=== PATIENT | female | born 1980 | race Caucasian/White ===

== ENCOUNTER 2020-04-06 22:17 | Emergency (ER) | payer SELFPAY ==
--- OUTSIDE RECORDS SUMMARY | 2020-04-06 22:19 | XMS REPORT | Continuity of Care Document ---
:1980 Author Organization [facility] t Address [facility] [place] [address] [place] [id number] Care Team Providers Name Role Phone Unavailable Unavailable Unavailable Problems This patient has no known problems. Allergies, Adverse Reactions, Alerts This patient has no known allergies or adverse reactions. Medications This patient has no known medications. Procedures This patient has no known procedures. Results This patient has no known results.
[2020-04-06] MEDS ORDERED: NA CHLORIDE 0.9% 1,000 ML ONE (23:24)
[2020-04-06] MEDS ORDERED: ONDANSETRON 4 MG/2 ML VIAL ONE (23:24)
[2020-04-06] MEDS ORDERED: MORPHINE 2 MG/ML SYR ONE (23:24)
[2020-04-06 23:31] LABS: Absolute Lymphocytes (CBC) 2.6 K/uL (0.7-4.9); Hematocrit 27.4 % (36.0-45.0); Lymphocytes % 27.6 % (15.3-44.8); MPV 8.9 fL (7.6-11.3); RBC Red Blood Cell Count 4.08 M/uL (3.86-4.86)
[2020-04-06 23:41] LABS: Urine Blood NEGATIVE (NEG); Urine Glucose NEGATIVE (NEG); Urine Protein NEGATIVE (NEG); Urine Specific Gravity <1.005 (1.005-1.030); Urine pH 5.5 (5.0-7.0)
[2020-04-06 23:50] LABS: ALT/SGPT 14 U/L (12-78); AST/SGOT 14 U/L (15-37); Albumin 4.3 g/dL (3.4-5.0); Alkaline Phosphatase 121 U/L (45-117); BUN Blood Urea Nitrogen 14 mg/dL (7-18); Bicarbonate 26 mmol/L (21-32); Bilirubin Direct < 0.1 mg/dL (0-0.2); Bilirubin Total 0.2 mg/dL (0.2-1.0); Glucose Level 92 mg/dL (74-106); Lipase 110 U/L (73-393); Potassium 3.5 mmol/L (3.5-5.1); Protein, Total 8.1 g/dL (6.4-8.2); Sodium Level 141 mmol/L (136-145)
[2020-04-06 23:59] LABS: Blood Morphology Comment NOTED (NOT SEEN); Hypochromasia 2+; Platelet Estimate ADEQ; White Blood Cell Scan OK (OK)
[2020-04-07] MEDS ORDERED: MORPHINE 2 MG/ML SYR ONE (00:27)
--- NOTE | 2020-04-07 00:34 | ER ---
Nurse's Notes [facility] Name: Berenice Bowen Age: 39 yrs Sex: Female : 1980 Arrival Date: 04/06/2020 Time: 22:20 Bed 16 Private MD: Diagnosis: Abdominal tenderness;Other ovarian cysts-bilateral;Constipation;Scoliosis;Anemia, unspecified Presentation: 04/06 22:39 Chief complaint: Patient states: I started having pain around 6pm, it has progressively jb4 gotten worse. The pain starts in the middle of my abdomen and radiates to my right lower back. Coronavirus screen: Client denies travel out of the [place] in the last 14 days. Ebola Screen: No symptoms or risks identified at this time. Initial Sepsis Screen: Does the patient meet any 2 criteria? No. Patient's initial sepsis screen is negative. Does the patient have a suspected source of infection? No. Patient's initial sepsis screen is negative. Risk Assessment: Do you want to hurt yourself or someone else? Patient reports no desire to harm self or others. Onset of symptoms was April 06, 2020. 22:39 Method Of Arrival: Wheelchair jb4 22:39 Acuity: LILLIAN 3 jb4 Triage Assessment: 22:42 General: Appears in no apparent distress. uncomfortable, Behavior is calm, cooperative, jb4 appropriate for age. Pain: Complains of pain in suprapubic area Pain radiates to right low back Pain currently is 10 out of 10 on a pain scale. Quality of pain is described as throbbing. EENT: No signs and/or symptoms were reported regarding the EENT system. Neuro: Level of Consciousness is awake, alert, obeys commands, Oriented to person, place, time, situation. Cardiovascular: Reports. Respiratory: Airway is patent Respiratory effort is even, unlabored, Respiratory pattern is regular, symmetrical. GI: Abdomen is flat, non-distended. : Reports pain in right flank(s), in lower back. Derm: Skin is intact, Skin is pink, warm \T\ dry. Musculoskeletal: Circulation, motion, and sensation intact. Range of motion: intact in all extremities. Historical: - Allergies: 22:42 Valium; jb4 - Home Meds: 22:42 None [Active]; jb4 - PMHx: 22:42 scoliosis; Kidney stones; jb4 - PSHx: 22:42 Tubal ligation; BILATERAL FOOT SURG; jb4 - Immunization history:: Adult Immunizations not up to date. - Social history:: Smoking status: Patient reports the use of cigarette tobacco products, <1/2 ppd. - Family history:: not pertinent. Screenin:45 Abuse screen: Denies threats or abuse. Nutritional screening: No deficits noted. jb4 Tuberculosis screening: No symptoms or risk factors identified. Fall Risk None identified. Assessment: 22:45 General: see triage assessment.. jb4 23:28 Reassessment: Patient appears in no apparent distress at this time. Patient and/or jb4 family updated on plan of care and expected duration. Pain level reassessed. Patient is alert, oriented x 3, equal unlabored respirations, skin warm/dry/pink. 04/07 00:56 Reassessment: Patient appears in no apparent distress at this time. Patient and/or jb4 family updated on plan of care and expected duration. Pain level reassessed. Patient is alert, oriented x 3, equal unlabored respirations, skin warm/dry/pink. PT reports that the pain is unchanged after medication administration. Provider notified. 01:24 Reassessment: Patient appears in no apparent distress at this time. Patient and/or jb4 family updated on plan of care and expected duration. Pain level reassessed. Patient is alert, oriented x 3, equal unlabored respirations, skin warm/dry/pink. Vital Signs: 04/06 22:39 BP 139 / 71; Pulse 75; Resp 16; Temp 97.9; Pulse Ox 96% on R/A; Weight 65.59 kg (R); jb4 Height 5 ft. 4 in. (162.56 cm) (R); Pain 10/10; 04/07 00:45 BP 125 / 82; Pulse 62; Resp 16; Pulse Ox 100% on R/A; jb4 04/06 22:39 Body Mass Index 24.82 (65.59 kg, 162.56 cm) jb4 ED Course: 04/06 22:20 Patient arrived in ED. bp1 22:27 Yamil Velasco RN is Primary Nurse. rv 22:39 Emory Tinoco MD is Attending Physician. [facility] 22:42 Triage completed. jb4 22:42 Arm band placed on right wrist. jb4 22:45 Patient has correct armband on for positive identification. Bed in low position. Call [facility] light in reach. Side rails up X 1. 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 Pulse ox on. 23:16 Urine collected: clean catch specimen, clear, kumar colored. Patient maintains SpO2 jp3 saturation greater than 95% on room air. 23:20 Initial lab(s) drawn, by ar, sent to lab. Inserted saline lock: 20 gauge in left jb4 antecubital area, using aseptic technique. Blood collected. 04/07 00:10 CT Abd/Pelvis - IV Contrast Only In Process Unspecified. EDTX 00:32 Mari Lopez MD is Referral Physician. [facility] 01:24 No provider procedures requiring assistance completed. IV discontinued, intact, jb4 bleeding controlled, No redness/swelling at site. Pressure dressing applied. Administered Medications: 04/06 23:20 Drug: Zofran (Ondansetron) 4 mg Route: IVP; Site: left antecubital; jb4 23:50 Follow up: Response: No adverse reaction [facility] 23:22 Drug: NS 0.9% 1000 ml Route: IV; Rate: 1 bolus; Site: left antecubital; jb4 23:22 Drug: morphine 2 mg Route: IVP; Site: left antecubital; jb4 04/07 00:33 Drug: morphine 2 mg Route: IVP; Site: left antecubital; jb4 00:56 Follow up: Response: No adverse reaction; Pain is unchanged, physician notified; RASS: [facility] Alert and Calm (0) 01:02 Drug: TORadol 30 mg Route: IVP; Site: left antecubital; jb4 01:24 Follow up: Response: No adverse reaction; Pain is decreased [facility] Point of Care Testing: Urine : 04/06 23:18 hCG Reading: Negative; Control Reading: Positive; jp3 Outcome: 04/07 00:34 Discharge ordered by . [facility] 01:24 Discharged to home ambulatory. [facility] 01:24 Condition: stable 01:24 Discharge instructions given to patient, Instructed on discharge instructions, follow up and referral plans. medication usage, Demonstrated understanding of instructions, follow-up care, medications, Prescriptions given X 4. 01:25 Patient left the ED. 4 Signatures: Dispatcher [employer] EDTX Emory Tinoco MD MD cha Bryson, James, RN RN jb4 Yamil Velasco, RN RN rv Brain Norris jp3 Jaye Pan [facility]
--- NOTE | 2020-04-07 00:34 | EDPHYS ---
Physician Documentation [facility] Name: Berenice Bowen Age: 39 yrs Sex: Female : 1980 Arrival Date: 04/06/2020 Time: 22:20 Bed 16 Private MD: JOSÉ Physician mEory Tinoco HPI: 04/06 22:55 This 39 yrs old Female presents to ER via Wheelchair with complaints of leila Abdominal Pain, Back Pain. 22:55 The patient presents with pain that is acute, with no known mechanism of injury. The leila symptoms are located in the low back, right mid back and right low back. Onset: The symptoms/episode began/occurred today. The pain radiates to the right mid back and right low back. Associated signs and symptoms: The patient has no apparent associated signs or symptoms. The problem was sustained from unknown cause. Modifying factors: The patient symptoms are alleviated by nothing, the patient symptoms are aggravated by bending, standing, walking. Severity of symptoms: At their worst the symptoms were mild, moderate, in the emergency department the symptoms are unchanged. The patient has not experienced similar symptoms in the past. Historical: - Allergies: 22:42 Valium; jb4 - Home Meds: 22:42 None [Active]; jb4 - PMHx: 22:42 scoliosis; Kidney stones; jb4 - PSHx: 22:42 Tubal ligation; BILATERAL FOOT SURG; jb4 - Immunization history:: Adult Immunizations not up to date. - Social history:: Smoking status: Patient reports the use of cigarette tobacco products, <1/2 ppd. - Family history:: not pertinent. ROS: 22:55 Constitutional: Negative for fever, chills, and weight loss, Eyes: Negative for injury, leila pain, redness, and discharge, ENT: Negative for injury, pain, and discharge, Neck: Negative for injury, pain, and swelling, Cardiovascular: Negative for chest pain, palpitations, and edema, Respiratory: Negative for shortness of breath, cough, wheezing, and pleuritic chest pain, Back: Negative for injury and pain, : Negative for injury, bleeding, discharge, and swelling, MS/Extremity: Negative for injury and deformity, Skin: Negative for injury, rash, and discoloration, Neuro: Negative for headache, weakness, numbness, tingling, and seizure, Psych: Negative for depression, anxiety, suicide ideation, homicidal ideation, and hallucinations, Allergy/Immunology: Negative for hives, rash, and allergies, Endocrine: Negative for neck swelling, polydipsia, polyuria, polyphagia, and marked weight changes, Hematologic/Lymphatic: Negative for swollen nodes, abnormal bleeding, and unusual bruising. 22:55 Abdomen/GI: Positive for abdominal pain, of the posterior aspect of right lateral abdomen and right lower quadrant. Exam: 22:55 Constitutional: This is a well developed, well nourished patient who is awake, alert, leila and in no acute distress. Head/Face: Normocephalic, atraumatic. Eyes: Pupils equal round and reactive to light, extra-ocular motions intact. Lids and lashes normal. Conjunctiva and sclera are non-icteric and not injected. Cornea within normal limits. Periorbital areas with no swelling, redness, or edema. ENT: Nares patent. No nasal discharge, no septal abnormalities noted. Tympanic membranes are normal and external auditory canals are clear. Oropharynx with no redness, swelling, or masses, exudates, or evidence of obstruction, uvula midline. Mucous membranes moist. Neck: Trachea midline, no thyromegaly or masses palpated, and no cervical lymphadenopathy. Supple, full range of motion without nuchal rigidity, or vertebral point tenderness. No Meningismus. Chest/axilla: Normal chest wall appearance and motion. Nontender with no deformity. No lesions are appreciated. Cardiovascular: Regular rate and rhythm with a normal S1 and S2. No gallops, murmurs, or rubs. Normal PMI, no JVD. No pulse deficits. Respiratory: Lungs have equal breath sounds bilaterally, clear to auscultation and percussion. No rales, rhonchi or wheezes noted. No increased work of breathing, no retractions or nasal flaring. Skin: Warm, dry with normal turgor. Normal color with no rashes, no lesions, and no evidence of cellulitis. MS/ Extremity: Pulses equal, no cyanosis. Neurovascular intact. Full, normal range of motion. Neuro: Awake and alert, GCS 15, oriented to person, place, time, and situation. Cranial nerves II-XII grossly intact. Motor strength 5/5 in all extremities. Sensory grossly intact. Cerebellar exam normal. Normal gait. Psych: Awake, alert, with orientation to person, place and time. Behavior, mood, and affect are within normal limits. 22:55 Abdomen/GI: Inspection: abdomen appears normal, Bowel sounds: normal, Palpation: mild abdominal tenderness, in the right lower quadrant, Liver: no appreciated palpable abnormalities, Hernia: not appreciated. 22:55 Back: pain, that is mild, ROM is normal, normal spinal alignment noted, CVA tenderness, that is mild, vertebral tenderness, is not appreciated, muscle spasm, is appreciated in the right mid back and right low back. Vital Signs: 22:39 BP 139 / 71; Pulse 75; Resp 16; Temp 97.9; Pulse Ox 96% on R/A; Weight 65.59 kg (R); jb4 Height 5 ft. 4 in. (162.56 cm) (R); Pain 03/04; 04/07 00:45 BP 125 / 82; Pulse 62; Resp 16; Pulse Ox 100% on R/A; jb4 04/06 22:39 Body Mass Index 24.82 (65.59 kg, 162.56 cm) [facility] MDM: 04/06 22:39 Patient medically screened. [facility] 23:01 Differential diagnosis: Hydronephrosis Pyelonephritis Ureterolithiasis. Data reviewed: [facility] vital signs, nurses notes, lab test result(s), radiologic studies, CT scan. 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 Counseling: I had a detailed discussion with the patient and/or guardian regarding: the historical points, exam findings, and any diagnostic results supporting the discharge/admit diagnosis, lab results, radiology results. 04/06 22:55 Order name: Basic Metabolic Panel [facility] 04/06 22:55 Order name: CBC with Diff [facility] 04/06 22:55 Order name: Hepatic Function [facility] 04/06 22:55 Order name: Lipase [facility] 04/06 22:55 Order name: Urine Culture [facility] 04/06 22:55 Order name: Basic Metabolic Panel; Complete Time: 00:19 EDAZ 04/06 22:55 Order name: CT Abd/Pelvis - IV Contrast Only [facility] 04/06 22:55 Order name: CBC with Automated Diff; Complete Time: 00:19 EDAZ 04/06 22:55 Order name: Liver (Hepatic) Function; Complete Time: 00:19 EDAZ 04/06 22:55 Order name: Lipase; Complete Time: 00:19 [facility] 04/06 23:22 Order name: Urine Dipstick--Ancillary (enter results); Complete Time: 00:19 mi 04/06 23:22 Order name: Urine --Ancillary (enter results); Complete Time: 00:19 mi 04/06 23:39 Order name: CBC Smear Scan; Complete Time: 00:19 [facility] 04/06 22:55 Order name: IV Saline Lock; Complete Time: 23:30 [facility] 04/06 22:55 Order name: Labs collected and sent; Complete Time: 23:30 [facility] 04/06 22:55 Order name: Urine Dipstick-Ancillary (obtain specimen); Complete Time: 23:16 [facility] 04/06 22:55 Order name: Urine Test (obtain specimen); Complete Time: 23:16 [facility] Administered Medications: 23:20 Drug: Zofran (Ondansetron) 4 mg Route: IVP; Site: left antecubital; [facility] 23:50 Follow up: Response: No adverse reaction [facility] 23:22 Drug: NS 0.9% 1000 ml Route: IV; Rate: 1 bolus; Site: left antecubital; 4 23:22 Drug: morphine 2 mg Route: IVP; Site: left antecubital; [facility] 04/07 00:33 Drug: morphine 2 mg Route: IVP; Site: left antecubital; jb4 00:56 Follow up: Response: No adverse reaction; Pain is unchanged, physician notified; RASS: 4 Alert and Calm (0) 01:02 Drug: TORadol 30 mg Route: IVP; Site: left antecubital; 4 01:24 Follow up: Response: No adverse reaction; Pain is decreased 4 Point of Care Testing: Urine : 04/06 23:18 hCG Reading: Negative; Control Reading: Positive; jp3 Disposition: 04/07/20 00:34 Discharged to Home. Impression: Abdominal tenderness, Other ovarian cysts - bilateral, Constipation, Scoliosis, Anemia, unspecified. - Condition is Stable. - Discharge Instructions: Abdominal Pain, Adult, Iron Deficiency Anemia, Adult, Constipation, Adult, Ovarian Cyst, Constipation, Adult, Yjze-yb-Ejgz, Abdominal Pain, Adult, Vvlw-[id number], Ovarian Cyst, Qiif-if-Darg, Iron Deficiency Anemia, Adult, Nbat-uc-Rfmv. - Prescriptions for Bentyl 20 mg Oral Tablet - take 1 tablet by ORAL route every 6 hours As needed; 20 tablet. Ibuprofen 600 mg Oral Tablet - take 1 tablet by ORAL route every 6 hours As needed take with food; 20 tablet. Lactulose 10 gram/15 mL Oral Solution - take 30 milliliter by ORAL route once daily; 300 milliliter. Dulcolax 10 mg Rectal Suppository - insert 1 suppository by RECTAL route every 12 hours As needed; 10 suppository. - Medication Reconciliation Form, Thank You Letter, Antibiotic Education, Prescription Opioid Use form. - Follow up: Private Physician; When: 2 - 3 days; Reason: Recheck today's complaints, Continuance of care, Re-evaluation by your physician. Follow up: Mari Lopez MD; When: 2 - 3 days; Reason: Recheck today's complaints, Re-evaluation by your physician. - Problem is new. - Symptoms have improved. Signatures: Dispatcher [employer] Emory Pimentel MD MD cha Bryson, James, RN RN jb4 Corrections: (The following items were deleted from the chart) 04/07 00:36 00:34 04/07/2020 00:34 Discharged to Home. Impression: Abdominal tenderness; Other leila ovarian cysts - bilateral; Constipation; Scoliosis. Condition is Stable. Forms are Medication Reconciliation Form, Thank You Letter, Antibiotic Education, Prescription Opioid Use. Follow up: Private Physician; When: 2 - 3 days; Reason: Recheck today's complaints, Continuance of care, Re-evaluation by your physician. Follow up: Mari Lopez; When: 2 - 3 days; Reason: Recheck today's complaints, Re-evaluation by your physician. Problem is new. Symptoms have improved. leila 01:25 00:36 04/07/2020 00:34 Discharged to Home. Impression: Abdominal tenderness; Other jb4 ovarian cysts - bilateral; Constipation; Scoliosis; Anemia, unspecified. Condition is Stable. Discharge Instructions: Abdominal Pain, Adult, Constipation, Adult, Ovarian Cyst, Constipation, Adult, Riaz-ql-Rfec, Abdominal Pain, Adult, Idxi-jf-Ciij, Ovarian Cyst, Fsdz-bi-Xerm, Iron Deficiency Anemia, Adult, Iron Deficiency Anemia, Adult, Sutg-zp-Rfjg. Prescriptions for Bentyl 20 mg Oral Tablet - take 1 tablet by ORAL route every 6 hours As needed; 20 tablet, Ibuprofen 600 mg Oral Tablet - take 1 tablet by ORAL route every 6 hours As needed take with food; 20 tablet. and Forms are Medication Reconciliation Form, Thank You Letter, Antibiotic Education, Prescription Opioid Use. Follow up: Private Physician; When: 2 - 3 days; Reason: Recheck today's complaints, Continuance of care, Re-evaluation by your physician. Follow up: Mari Lopez; When: 2 - 3 days; Reason: Recheck today's complaints, Re-evaluation by your physician. Problem is new. Symptoms have improved. leila
[2020-04-07] MEDS ORDERED: KETOROLAC 30 MG/ML INJ ONE (01:14)
[2020-04-07 03:33] VITALS: TEMP 97.9
[2020-04-07 03:35] VITALS: BP 125/82; O2SAT 100
--- NOTE | 2020-04-07 11:42 | RAD REPORT ---
EXAM DESCRIPTION: CT - Abdomen Pelvis W Contrast - 04/07/2020 6:21 am CLINICAL HISTORY: The patient is 39 years old and is Female; ABD PAIN TECHNIQUE: Axial computed tomography images of the abdomen and pelvis with intravenous contrast. S agittal and coronal reformatted images were created and reviewed. This CT exam was performed using one or more of the following dose reduction techniques: automated exposure control, adjustment of t he mA and/or kV according to patient size, and/or use of iterative reconstruction technique. DLP: 1056 mGy*cm COMPARISON: None. FINDINGS: LUNG BASES: Unremarkable. No mass. No consolidation. ABDOMEN: LIVER: Unremarkable. No mass. GALLBLADDER AND BILE DUCTS: Unremarkable. No calcified stones. No ductal dilation. PANCREAS: Unremarkable. No mass. No ductal dilation. SPLEEN: Unremarkable. No splenomegaly. ADRENALS: Unremarkable. No mass. KIDNEYS AND URETERS: Punctate nonobstructive bilateral renal stones. STOMACH AND BOWEL: Xzlw-if-bukrvigq stool burden. No obstruction. No mucosal thickening. PELVIS: APPENDIX: The appendix is seen and is within normal limits. BLADDER: Unremarkable. No mass. REPRODUCTIVE: Small amount of endometrial fluid. Bilateral adnexal cysts measuring up to 2.7 cm on the left. ABDOMEN and PELVIS: INTRAPERITONEAL SPACE: Unremarkable. No free air. No significant fluid collection. BONES/JOINTS: Partial evaluated advanced dextroscoliosis of the thoracolumbar spine. No acute fracture. No dislocation. SOFT TISSUES: Small fat-containing umbilical hernia. VASCULATURE: Unremarkable. No abdominal aortic aneurysm. LYMPH NODES: Unremarkable. No enlarged lymph nodes. IMPRESSION: 1. No acute abdominal or pelvic abnormality. 2. Small amount of endometrial fluid. Bilateral adnexal cysts measuring up to 2.7 cm on the left. 3. Luti-yx-ncrtqsco stool burden. Correlate for constipation. 4. Partial evaluated advanced dextroscoliosis of the thoracolumbar spine. Electronically signed by: Michael Magallon DO 04/07/2020 12:25 AM PRACTICING UROLOGIST Due to temporary technical issues with the PACS/Fluency reporting system, reports are being signed by the in house radiologist without review as a courtesy to ensure prompt reporting. The interpreting r adiologist is fully responsible for the content of the report.
== END 2020-04-07 01:25 | disposition home or self-care (01) ==
LOC: ER 22:17
DX: N83.202 Unspecified ovarian cyst, left side (principal); N83.201 Unspecified ovarian cyst, right side; K59.00 Constipation, unspecified; M41.9 Scoliosis, unspecified; D64.9 Anemia, unspecified; Z88.8 Allergy status to other drugs, medicaments and biological substances; F17.210 Nicotine dependence, cigarettes, uncomplicated
CPT/HCPCS: 36415; 74177; 80048; 80076; 81003; 81025; 82565; 83690; 85025; 87086; 87088; 96374; 96375; 99285; J2270; J2405; J7030; Q9967

== ENCOUNTER 2024-03-11 11:10 | Emergency (ER) | payer OTHER ==
--- OUTSIDE RECORDS SUMMARY | 2024-03-11 11:13 | XMS REPORT | Continuity of Care Document ---
Author Name Unknown Address [address] [facility] [address] [place] [address] [facility] thconnect Address [address] [facility] 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 Helper Name Role Phone SKYLA GARCIA Primary Care Physician Unavailab Skyla Salter Attending Clinician Unavailable AGNES GARCIA Attending Clinician UnaLEONIDAS Tovar Attending Clinician UnavailSKYLA Rice Attending Clinician Unavailable AJAY DILLON Attending Clinician Unavailable Ajay Dillon MD Attending Clinician [phone] JERRI Attending Clinician Unavailable JACEK CUNNINGHAM Attending Clinician Unavailable Doctor Unassigned, [place] Attending Clinician U EVELIO Bynum Attending Clinician Unavailable EVELIO BAXTER Attending Clinician Unavailable Jacek Cunningham MD Attending Clinician [phone] VANESSA MAURER Attending Clinician Unavailable Vanessa Hinds Attending Clinician [phone] Vaishnavi Mckenzie MD Attending Clinician [phone] VAISHNAVI MCKENZIE Attending Clinician Unavailable AJAY DILLON Admitting Clinician Unavailable JERRI Admitting Clinician Unavailable EVELIO BAXTER Admitting Clinician Unavailable Payers Payer Name Policy Type Policy Number Effective Date Expirati on Date Source [facility] MARYELLEN CANDELARIA FOCUS 9 [id number] 2023 00:00:00 Ila Swenson [id number] 2023 00:00:00 2024 00:00:00 [facility] [id number] 2023 00:00:00 INDIGENT PROGRAM 19572017-07-24 00:00:00 2018 00:00:00 [facility] [id number] 2017 00:00:00 2021 00:00:00 Problems Condition Name Condition Details Condition Category Status Onset Date Resolution Date Last Treatment Date Treating Clinician Comments Source Other specified anemias Other specified anemias Disease Active 09-25 00:00: 00 General acute hospital Closed nondisplac ed fracture of shaft of right clavicle, initial encounter Closed nondisplac ed fracture of shaft of right clavicle, initial encounter Disease Active 11-20 00:00: 00 Overview: Formattin g of this note might be different from the original. Added automatic ally from request for surgery [id number] General acute hospital [id number] Tobacco use disorder Problem [facility] [id number] Iron deficiency anemia, unspecifie d iron deficiency anemia type Problem [facility] [id number] Other idiopathic scoliosis, thoracolum bar region Problem [facility] [id number] Other chronic pain Problem [facility] [id number] Menorrhagi a with regular cycle Problem [facility] [id number] Mixed hyperlipid emia Problem [facility] Allergies, Adverse Reactions, Alerts Allergy Name Allergy Type Status Severity Reaction(s) Onset Date Inactive Date Treating Clinician Comments Source ADHESIVE TAPE-DAVI ICONES DRUG Active Rash 09-25 00:00: 00 General acute hospital Adhesive Tape-Davi icones Propensi ty to adverse reaction s Active Rash 09-25 00:00: 00 General acute hospital DIAZEPAM DRUG INGREDI Active Other-Cmnt 01-23 00:00: 00 General acute hospital Diazepam Propensi ty to adverse reaction s Active Other - See comments 01-23 00:00: 00 Hperventi juno General acute hospital Social History Social Habit Start Date Stop Date Quantity Comments Source History of Tobacco Use Current Smoker [facility] Sex [facility] At [facility] SDOH Alcohol Frequency [facility] History SDOH Alcohol Std Drinks [facility] History SDOH Alcohol Binge [facility] Exposure to SARS-CoV-2 (event) 2022-01-25 00:00:00 2022-02-04 00:34:00 Not sure [facility] Alcoholic beverage intake 2021-10-12 00:00:00 2021-10-12 00:00:00 Current drinker of alcohol (finding) [facility] Alcohol intake 2021-10-12 00:00:00 2021-10-12 00:00:00 Current drinker of alcohol (finding) [facility] History of Social function 2021-09-25 00:00:00 2021-09-25 00:00:00 [facility] Alcohol Comment 2021-09-25 00:00:00 2021-09-25 00:00:00 social [facility] Tobacco use and exposure 2021-09-25 00:00:00 2021-09-25 00:00:00 Smokeless tobacco non-user [facility] Smoking Status Start Date Stop Date Source Current Smoker 2024-02-20 00:00:00 [facility] Medications Ordered Medication Name Filled Medication Name Start Date Stop Date Current Medication? Ordering Clinician Indication Dosage Frequency Signature (SIG) Comments Components Source Benzonatate 200 MG Benzonatate 200 MG 02-19 00:00: 00 No 1{capsu le} TID Benzonatat e 200 MG methylPREDN ISolone 4 MG methylPREDN ISolone 4 MG 02-19 00:00: 00 No QD methylPRED NISolone 4 MG Azithromyci n 250 MG Azithromyci n 250 MG 02-19 00:00: 00 No QD Azithromyc in 250 MG acetaminoph en (TYLENOL) tablet 975 mg 10-08 19:15: 00 10-08 18:59 :00 No 975mg 975 mg, Oral, ONCE, 1 dose, On Tanya 10/09/23 at 1415, CADEN General acute hospital NaCl 0.9% (NS) bolus infusion 1,000 mL 10-08 19:15: 00 10-08 20:41 :00 No 1000mL at 999 mL/hr, 1,000 mL, IV Infusion, ONCE, 1 dose, On Tanya 10/09/23 at 1415, STAT [facility] acute hospital metoclopram amilcar HCl (REGLAN) injection 10 mg 10-08 18:15: 00 10-08 18:59 :00 No 10mg 10 mg, Slow IV Push, ONCE, 1 dose, On Tanya 10/09/23 at 1315, CADEN General acute hospital amoxicillin -clavulanat e 875-125 mg per tablet 10-08 00:00: 00 Yes [id number] 1{tbl} Take 1 tablet by mouth every 12 (twelve) hours. General acute hospital loratadine- pseudoephed rine (CLARITIN-D 24 HOUR) 10-240 mg per 24 hr tablet 10-08 00:00: 00 Yes [id number] 1{tbl} Take 1 tablet by mouth in the morning. General acute hospital benzonatate 100 mg capsule 10-08 00:00: 00 Yes [id number] 100mg Take 1 capsule by mouth 3 (three) times daily as needed for Cough. General acute hospital metoclopram amilcar HCl 10 mg tablet 10-08 00:00: 00 Yes [id number] 10mg Take 1 tablet by mouth every 6 (six) hours. [facility] acute hospital naproxen 500 mg tablet 10-08 00:00: 00 10-19 04:59 :00 No [id number] 500mg Take 1 tablet by mouth in the morning and 1 tablet in the evening. Take with meals. Do all this for 10 days. [facility] acute hospital NaCl 0.9% (NS) bolus infusion 1,000 mL 02-04 06:30: 00 02-04 07:42 :00 No 1000mL at 999 mL/hr, 1,000 mL, IV Infusion, ONCE, 1 dose, On Fri02/04/22 at 0130, CADEN [facility] acute hospital ibuprofen 600 mg tablet 02-04 00:00: 00 Yes [id number] 600mg Take 1 tablet by mouth every 6 (six) hours as needed for Pain (scale 4-6) for up to 30 doses. General acute hospital ondansetron 4 mg tablet 02-04 00:00: 00 Yes [id number] 4mg Take 1 tablet by mouth every 8 (eight) hours as needed for Nausea and Vomiting (N/V) for up to 20 doses. General acute hospital polycarboph il (FIBERCON) 625 mg tablet 10-12 00:00: 00 Yes [id number] 625mg Take 1 tablet by mouth daily. [facility] acute hospital acetaminoph en (TYLENOL) 325 mg tablet 09-25 00:00: 00 Yes [id number] 650mg Take 2 tablets by mouth every 6 (six) hours as needed for Pain (scale 1-3) or Pain (scale 4-6). [facility] acute hospital simethicone 80 mg chewable tablet 09-25 00:00: 00 Yes [id number] 80mg Take 1 tablet by mouth after meals and at bedtime. [facility] acute hospital ibuprofen 600 mg tablet 09-25 00:00: 00 02-04 00:00 :00 No [id number] 600mg Take 1 tablet by mouth every 6 (six) hours as needed for Pain (scale 1-3) or Pain (scale 4-6). General acute hospital triamcinolo ne acetonide 0.1 % cream 2020-05 00:00: 00 Yes [id number] Apply to area(s) 2 (two) times daily. General acute hospital clotrimazol e (ATHLETE'S FOOT, CLOTRIMAZOL E,) 1 % topical cream 2020-05 00:00: 00 Yes [id number] Apply to area(s) at bedtime. General acute hospital methocarbam ol 500 mg tablet 12-23 00:00: 00 Yes 500mg Take 1 tablet by mouth 4 (four) times daily as needed for Pain (scale 4-6) or Pain (scale 7-10). General acute hospital Naproxen Naproxen No Naproxen Permethrin 5 % Permethrin 5 % No Permethrin 5 % Vital Signs Vital Name Observation Time Observation Value Comments S ource height 2024-02-26 08:15:00 64 [in_i] Commo n [facility] weight 2024-02-26 08:15:00 157 [lb_av] Comm on [facility] 2024-02-26 08:15:00 26.95 kg/m2 Comm on [facility] blood pressure systolic 2024-02-20 15:40:00 130 mm[Hg] [facility] blood pressure diastolic 2024-02-20 15:40:00 74 mm[Hg] [facility] height 2024-02-20 15:40:00 64 [in_i] Commo n [facility] weight 2024-02-20 15:40:00 157 [lb_av] Comm on [facility] temperature 2024-02-20 15:40:00 97.9 [degF] Com [facility] bmi 2024-02-20 15:40:00 26.95 kg/m2 Comm on [facility] height 2024-02-05 13:50:00 64 [in_i] Commo n [facility] weight 2024-02-05 13:50:00 157 [lb_av] Comm on [facility] temperature 2024-02-05 13:50:00 97.9 [degF] Com [facility] bmi 2024-02-05 13:50:00 26.95 kg/m2 Comm on [facility] oximetry 2024-02-05 13:50:00 99 % Commo n [facility] blood pressure systolic 2024-02-05 13:50:00 130 mm[Hg] [facility] blood pressure diastolic 2024-02-05 13:50:00 74 mm[Hg] [facility] height 2023-12-05 15:40:00 64 [in_i] Commo n [facility] weight 2023-12-05 15:40:00 154.8 [lb_av] Co mmon [facility] temperature 2023-12-05 15:40:00 98.2 [degF] Com mon [facility] bmi 2023-12-05 15:40:00 26.57 kg/m2 Comm on [facility] oximetry 2023-12-05 15:40:00 99 % Commo n [facility] respiratory rate 2023-12-05 15:40:00 17 /min [facility] blood pressure systolic 2023-12-05 15:40:00 115 mm[Hg] [facility] blood pressure diastolic 2023-12-05 15:40:00 59 mm[Hg] [facility] Systolic blood pressure 2023-10-09 20:00:00 96 mm[Hg] [facility] Diastolic blood pressure 2023-10-09 20:00:00 56 mm[Hg] [facility] Heart rate 2023-10-09 20:00:00 59 /min [facility] Body temperature 2023-10-09 20:00:00 36 Heather [facility] Respiratory rate 2023-10-09 20:00:00 13 /min [facility] Oxygen saturation in Arterial blood by Pulse oximetry 2023-10-09 20:00:00 98 /min [facility] Body height 2023-10-09 17:41:09 162.6 cm [facility] Body weight 2023-10-09 16:53:00 68.04 kg [facility] BMI 2023-10-09 16:53:00 25.75 kg/m2 [facility] height 2023-03-19 11:10:00 64 [in_i] Commo n [facility] weight 2023-03-19 11:10:00 154 [lb_av] Comm on [facility] bmi 2023-03-19 11:10:00 26.43 kg/m2 Comm on [facility] height 2023-02-04 10:10:00 64 [in_i] Commo n [facility] weight 2023-02-04 10:10:00 148.5 [lb_av] Co mmon [facility] temperature 2023-02-04 10:10:00 98.2 [degF] Com mon [facility] bmi 2023-02-04 10:10:00 25.49 kg/m2 Comm on [facility] oximetry 2023-02-04 10:10:00 97 % Commo n [facility] respiratory rate 2023-02-04 10:10:00 18 /min [facility] blood pressure systolic 2023-02-04 10:10:00 130 mm[Hg] [facility] blood pressure diastolic 2023-02-04 10:10:00 71 mm[Hg] [facility] Heart rate 2022-02-04 07:54:00 72 /min [facility] Oxygen saturation in Arterial blood by Pulse oximetry 2022-02-04 07:54:00 98 /min [facility] Systolic blood pressure 2022-02-04 07:00:00 109 mm[Hg] [facility] Diastolic blood pressure 2022-02-04 07:00:00 70 mm[Hg] [facility] Respiratory rate 2022-02-04 07:00:00 13 /min [facility] Body temperature 2022-02-04 05:35:00 36.89 [facility] Body weight 2022-02-04 05:35:00 68.04 kg [facility] BMI 2022-02-04 05:35:00 25.75 kg/m2 [facility] Systolic blood pressure 2021-10-12 13:34:00 121 mm[Hg] [facility] Diastolic blood pressure 2021-10-12 13:34:00 80 mm[Hg] [facility] Heart rate 2021-10-12 13:34:00 70 /min [facility] Body temperature 2021-10-12 13:34:00 36.72 Heather [facility] Body height 2021-10-12 13:34:00 162.6 cm [facility] Body weight 2021-10-12 13:34:00 68.811 kg [facility] BMI 2021-10-12 13:34:00 26.04 kg/m2 [facility] Procedures Procedure Date / Time Performed Performing Clinician Source POCT TEST 2023-10-09 19:01:00 Cory Dillon [facility] URINALYSIS 2023-10-09 18:33:00 Ajay Dillon [facility] URINE DRUG (IMMUNOASSAY) - COMPREHENSIVE DRUG SCREEN W/O REFLEX 2023-10-09 18:33:00 Ajay Dillon [facility] CT HEAD WO CONTRAST 2023-10-09 18:10:00 Cory Dillon [facility] TROPONIN I 2023-10-09 17:57:00 [facility] COMP. METABOLIC PANEL ([id number]) 2023-10-09 17:57:00 Santana Ajay [facility] CBC WITH DIFF 2023-10-09 17:57:00 Ajay Dillon [facility] N-TERMINAL PRO-BNP 2023-10-09 17:57[facility] 2023-10-09 17:57:00 Ajay Dillon [facility] XR CHEST 1 VW 2023-10-09 17:52:38 Ajay Dillon [facility] XR CHEST 1 2022-02-04 06:12:00 Evelio Baxter [facility] POCT TEST 2022-02-04 05:59:00 Evelio Baxter [facility] LACTIC ACID WHOLE BLOOD 2022-02-04 05:59:00 Adrián Baxter [facility] COMP. METABOLIC PANEL ([id number]) 2022-02-04 05:58:00 Evelio Baxter [facility] CBC WITH DIFF 2022-02-04 05:58:00 Evelio Baxter [facility] acute [facility] URINALYSIS 2022-02-04 05:58:00 Evelio Baxter [facility] COVID-19 (ID NOW RAPID TESTING) 2022-02-04 05:58:00 Evelio Baxter [facility] NOTICE OF PRIVACY PRACTICES 2022-02-04 05:25:49 Doctor Unassigned, [place] [facility] CONSENT/REFUSAL FOR DIAGNOSIS AND TREATMENT 2022-02-04 05:25:10 Doctor Unassigned, [place] [facility] POCT URINALYSIS W/O SPECIFIC GRAVITY 2021-10-12 00:00:00 Jacek Cunningham [facility] Encounters Start Date/Time End Date/Time Encounter Type Admission Type Attending Clinicians Care Facility Care Department Encounter ID Source 2024-02-23 10:32:00 Outpatient Garcia, [facility] [id number] [facility] 2024-02-20 11:15:00 Outpatient Garcia, [facility] hospital [id number] [facility] 2024-02-04 09:57:00 Outpatient Garcia, [facility] access hospital [id number] [facility] 2023-12-05 15:23:00 Outpatient Garcia, [facility] access hospital [id number] [facility] 2023-02-27 08:37:01 Outpatient Garcia, Critical access hospital [id number] [facility] 2023-02-04 09:56:02 [facility] [id number] [facility] 2024-05-13 10:45:00 2024-05-13 10:45:00 Outpatient AGNES GARCIA ILA [id number] [facility] 2024-04-07 16:00:00 2024-04-07 16:00:00 Outpatient THERESELEONIDAS ILA HUGHES [id number] [facility] 2024-03-04 00:00:00 2024-03-04 00:00:00 Outpatient GARCIAAGNES REAGAN ILA HUGHES [id number] [facility] 2024-02-26 00:00:00 2024-02-26 00:00:00 OFFICE VISIT ESTAB PT LEVEL 3 STLMLC STLMLC [id number] [facility] 2024-02-25 00:00:00 2024-02-25 00:00:00 (TEL) STLMLC STLMLC [id number] [facility] 2024-02-20 00:00:00 2024-02-20 00:00:00 (TEL) STLMLC STLMLC [id number] [facility] 2024-02-20 00:00:00 2024-02-20 00:00:00 OFFICE VISIT ESTAB PT LEVEL 3 STLMLC STLMLC [id number] [facility] 2024-02-17 00:00:00 2024-02-17 00:00:00 Outpatient GARCIASKYLA REAGAN ILA HUGHES [id number] [facility] 2024-02-16 00:00:00 2024-02-16 00:00:00 (TEL) STLMLC STLMLC [id number] [facility] 2024-02-05 00:00:00 2024-02-05 00:00:00 PREV VISIT EST AGE 40-64 STLMLC STLMLC [id number] [facility] 2023-12-05 00:00:00 2023-12-05 00:00:00 OFFICE VISIT ESTAB PT LEVEL 3 STLMLC STLMLC [id number] [facility] 2023-12-03 00:00:00 2023-12-03 00:00:00 (TEL) STLC STLC [id number] [facility] 2023-10-09 12:04:00 2023-10-09 15:57:00 Emergency X AJAY DILLON [facility] ERT [id number] General acute hospital 2023-10-09 12:04:00 2023-10-09 15:57:00 Emergency Dillno Ajay [facility] 1.2.840.114 350.1.13.10 4.2.7.2.686 [id number] General acute hospital 2023-10-08 00:00:00 2023-10-08 00:00:00 (TEL) STLMLC STLMLC [id number] [facility] 2023-03-19 00:00:00 2023-03-19 00:00:00 OFFICE VISIT ESTAB PT LEVEL 3 STLC STLC [id number] [facility] 2023-02-04 00:00:00 2023-02-04 00:00:00 PREV VISIT NEW AGE 40-64 STLC STLC [id number] [facility] 2022-06-13 00:00:00 2022-06-13 00:00:00 Outpatient KEFFER_A [facility] [id number] 2022-02-06 00:00:00 2022-02-06 00:00:00 Patient Secure Msg Doctor Unassigned, [place] [facility] 1.2.840.114 350.1.13.10 4.2.7.2.686 [id number] General acute hospital 2022-02-04 00:37:00 2022-02-04 03:05:00 Emergency EVELIO JOHN TIMOTHY [facility] ERT [id number] General acute hospital 2022-02-04 00:37:00 2022-02-04 03:05:00 Emergency Baxter, Evelio [facility] 1.2.840.114 350.1.13.10 4.2.7.2.686 [id number] General acute hospital 2022-02-04 00:00:00 2022-02-04 00:00:00 Orders Only Doctor Unassigned, [place] [facility] 1.2.840.114 350.1.13.10 4.2.7.2.686 [id number] General acute hospital 2021-10-12 08:30:00 2021-10-12 09:08:36 Outpatient R MARISA JACEK [facility] [id number] General acute hospital 2021-10-12 08:30:00 2021-10-12 09:08:36 Office Visit Jacek Cunningham [facility] 1.2.840.114 350.1.13.10 4.2.7.2.686 [id number] General acute hospital 2021-10-12 00:00:00 2021-10-12 00:00:00 Orders Only Doctor Unassigned, [place] [facility] 1.2.840.114 350.1.13.10 4.2.7.2.686 [id number] General acute hospital 2021-10-12 00:00:00 2021-10-12 00:00:00 Telephone Jacek Cunningham [facility] 1.2.840.114 350.1.13.10 4.2.7.2.686 [id number] General acute hospital 2021-09-28 00:00:00 2021-09-28 00:00:00 Telephone Jacek Cunningham [facility] 1.2.840.114 350.1.13.10 4.2.7.2.686 [id number] General acute hospital 2021-09-28 00:00:00 2021-09-28 00:00:00 Letter (Out) Jacek Cunningham [facility] 1.2.840.114 350.1.13.10 4.2.7.2.686 [id number] General acute hospital 2021-09-26 00:00:00 2021-09-26 00:00:00 Telephone Jacek Cunningham [facility] 1.2.840.114 350.1.13.10 4.2.7.2.686 [id number] General acute hospital 2021-09-25 17:05:00 2021-09-25 19:38:00 Surgery Jacek Cunningham [facility] 1.2.840.114 350.1.13.10 4.2.7.2.686 [id number] General acute hospital 2021-09-25 09:21:00 2021-09-25 17:39:00 Outpatient X VANESSA MAURER [facility] ERT [id number] General acute hospital 2021-09-25 09:21:00 2021-09-25 17:39:00 Emergency Vanessa Maurer [facility] 1.2.840.114 350.1.13.10 4.2.7.2.686 [id number] General acute hospital 2021-04-11 15:41:11 2021-04-11 16:10:35 Urgent Care Vaishnavi Mckenzie [facility] 1.2.840.114 350.1.13.10 4.2.7.2.686 [id number] General acute hospital 2021-04-11 15:40:00 2021-04-11 16:10:35 Outpatient R FARIHA VAISHNAVI [facility] [id number] General acute hospital Results Test Description Test Time Test Comments Results Result Co mments Source STREP A RAPID 2024-02-20 00:00:00 Result POCT [id number] 19:01:00* Test Item Value Reference Range Interpretation Comme nts POCT PREG (test code = 1605) Negative On board controls acceptable with C Line (test code = 3574) Yes POCT PREG LOT # (test code = 3575) [id number] POCT PREG TEST DATE ( test code = 3576) 08/31/24 Lab Interpretation (test cod e = 38551-1) [id number] 18:31:09* Test Item Value Reference Range Interpretation Comme nts TROPONIN I (test code = 0707929838) 0.002 ng/mL <=0.034 JANINE (test code = JANINE) Reference (Normal) Range (defined by the 99th percentile reference limit): <= 0.034 ng/mL Note: Cardiac troponin begins to rise 3-4 hours after the onset of ischemia. Repeat in 4-6 hours if the sample was drawn within 3-4 hours of the onset of the symptom and found normal. Diagnosis of myocardial injury is made with acute changes in cTn concentrations with at least one serial sample above the 99th percentile upper reference limit (URL), taken together with the patient's clinical presentation. Biotin has been reported to cause a negative bias, interpret results relative to patient's use of biotin. Lab Interpretation (test code = 98215-9) [facility] [id number] 18:30:09* Test Item Value Reference Range Interpretation Comme nts NT-proBNP (test code = 36908-9) 28 pg/mL <=125 Lab Interpretation (test cod e = 36061-4) [facility] (89337)2023-10-09 18:29:08* Test Item Value Reference Range Interpretation Comme nts NA (test code = 3093697567) 137 mmol/L 135-145 K (test code = 9399730955) 4.1 mmol/L 3.5-5.0 CL (test code = 3840604121) 106 mmol/L 98-108 CO2 TOTAL (test code = 1820937129) 25 mmol/L 23-31 AGAP (test code = 1443641777) 6 2-16 BUN (test code = 3516113826) 10 mg/dL 7-23 GLUCOSE (test code = 5231209996) 97 mg/dL 70-110 CREATININE (test code = 2160-0) 0.58 mg/dL 0.50-1.04 TOTAL BILI (test code = 3406269683) 0.2 mg/dL 0.1-1.1 CALCIUM (test code = 5437382270) 8.8 mg/dL 8.6-10.6 T PROTEIN (test code = 2598808987) 7.4 g/dL 6.3-8.2 ALBUMIN (test code = 6088564848) 4.3 g/dL 3.5-5.0 ALK PHOS (test code = 2539388474) 93 U/L 34-122 ALTv (test code = 1742-6) 12 U/L 5-35 AST(SGOT) (test code = 7141580479) 20 U/L 13-40 eGFR (test code = 07846-2) 113.9 mL/min/1.73m2 CKD-EPI eGFR (20 21). Assuming creatinine has been stable day-to-day for at least three months, the eGFR indicates Category G1 (>= 90 mL/min/1.73 m2) [facility] [id number] 18:28:43EXAM: CT HEAD WO CONTRAST HISTORY: 43 years-old Female; Provided indication: Headache, new orworsening, neuro deficit (Age 18-49y) . TECHNIQUE: Axial CT of the head was performed and reconstructed at5 mmintervals. Coronal and sagittal reformatted images were generated. COMPARISON: None FINDINGS: The ventricles and cerebral sulci are normal in caliber and configuration.No midline shift or pathological extra-axial fluid collection is present.The basal cisterns are unremarkable. No acute intracranial hemorrhage or significant mass effect is visualized.No parenchymal attenuation abnormality is seen. The vega-white matterdifferentiation is preserved. Mild mucoperiosteal thickening of the frontal, maxillary and sphenoidsinuses. The calvarium and central skull base are unremarkable.[facility] [id number] 18:10:27 * Test Item Value Reference Range Interpretation Comme nts WBC (test code = 6690-2) 7.74 4.30-11.10 RBC (test code = 789-8) 3.64 3.93-5.25 L HGB (test code = 718-7) 8.7 g/dL 11.6-15.0 L HCT (test code = 4544-3) 28.5 % 35.7-45.2 L MCV (test code = 787-2) 78.3 fL 80.6-95.5 L MCH (test code = 785-6) 23.9 pg 25.9-32.8 L MCHC (test code = 786-4) 30.5 g/dL 31.6-35.1 L RDW-SD (test code = 66939-2) 48.8 fL 39.0-49.9 RDW-CV (test code = 788-0) 17.0 % 12.0-15.5 H PLT (test code = 777-3) 348 166-358 MPV (test code = 95169-0) 10.2 fL 9.5-12.9 NRBC/100 WBC (test code = 7002085444) 0.0 0.0-10.0 NRBC x10^3 (test code = 7612817101) See_Comment [Automated messa ge] The system which generated this result transmitted reference range: 10*3/?L. The reference range was not used to interpret this result as normal/abnormal. GRAN MAT (NEUT) % (test code = 770-8) 66.8 % IMM GRAN % (test code = 2674442809) 0.40 % LYMPH % (test code = 736-9) 20.8 % MONO % (test code = 5905-5) 7.1 % EOS % (test code = 713-8) 4.0 % BASO % (test code = 706-2) 0.9 % GRAN MAT x10^3(ANC) (test code = 9463521192) 5.17 10*3/uL 1.88-7.09 IMM GRAN x10^3 (test code = 5975921688) 0.03 10*3/uL 0.00-0.06 LYMPH x10^3 (test code = 731-0) 1.61 10*3/uL 1.32-3.29 MONO x10^3 (test code = 742-7) 0.55 10*3/uL 0.33-0.92 EOS x10^3 (test code = 711-2) 0.31 10*3/uL 0.03-0.39 BASO x10^3 (test code = 704-7) 0.07 10*3/uL 0.01-0.07 Lab Interpretation (test code = 03230-4) [id number] 17:56:06HISTORY: Cough. TECHNIQUE: Portable AP view of the chest is obtained. Comparison made with02/04/2022tudy. FINDINGS: No acute pneumonia. No pneumothorax or pleural effusion orpulmonary congestion detected. Cardiac size is within normal limits. Moderate thoracolumbar dextroscoliosis, compression plate with screwssupporting old fracture right clavicle noted, unchanged when compared withprevious study. CONCLUSIONS: No signs of acute cardiopulmonary disease.[facility] W/AUTO [id number] 00:00:00* Test Item Value Reference Range Interpretation Comme nts NUCLEATED RBCS (test code = 77122-1) 0.0 /100 WBC'S See_Comment [Automated messa ge] The system which generated this result transmitted reference range: 0.0 /100 WBC'S. The reference range was not used to interpret this result as normal/abnormal. ABSOLUTE EOSINOPHILS (test code = 43511-6) 0.19 K/UL See_Comment [Automated messa ge] The system which generated this result transmitted reference range: 0.00-0.50 K/UL. The reference range was not used to interpret this result as normal/abnormal. ABSOLUTE LYMPHOCYTES (test code = 14714-5) 1.53 K/UL See_Comment [Automated messa ge] The system which generated this result transmitted reference range: 1.00-4.00 K/UL. The reference range was not used to interpret this result as normal/abnormal. ABSOLUTE MONOCYTES (test code = 53003-8) 0.78 K/UL See_Comment [Automated messa ge] The system which generated this result transmitted reference range: 0.20-1.00 K/UL. The reference range was not used to interpret this result as normal/abnormal. ABSOLUTE NEUTROPHILS (test code = 96652-3) 6.99 K/UL See_Comment [Automated messa ge] The system which generated this result transmitted reference range: 1.50-7.50 K/UL. The reference range was not used to interpret this result as normal/abnormal. BASOPHILS (test code = 43446-1) 0.7 % EOSINOPHILS (test code = 37062-6) 2.0 % HEMATOCRIT (test code = 54181-9) 33.1 % See_Comment L [Automated messa ge] The system which generated this result transmitted reference range: 34.0-45.0 %. The reference range was not used to interpret this result as normal/abnormal. HEMOGLOBIN (test code = 718-7) 9.6 G/DL See_Comment L [Automated messa ge] The system which generated this result transmitted reference range: 11.5-15.5 G/DL. The reference range was not used to interpret this result as normal/abnormal. LYMPHOCYTES (test code = 19975-5) 15.9 % MCH (test code = 56878-2) 21.1 PG See_Comment L [Automated messa ge] The system which generated this result transmitted reference range: 25.0-33.0 PG. The reference range was not used to interpret this result as normal/abnormal. MCHC (test code = 52294-1) 29.0 G/DL See_Comment L [Automated messa ge] The system which generated this result transmitted reference range: 31.0-36.0 G/DL. The reference range was not used to interpret this result as normal/abnormal. MCV (test code = 93716-9) 72.6 fL See_Comment L [Automated messa ge] The system which generated this result transmitted reference range: 80.0-99.0 fL. The reference range was not used to interpret this result as normal/abnormal. MONOCYTES (test code = 13056-4) 8.1 % NEUTROPHILS (test code = 13129-6) 72.9 % PLATELET COUNT (test code = 11698-4) 230 K/UL See_Comment [Automated messa ge] The system which generated this result transmitted reference range: 130-400 K/UL. The reference range was not used to interpret this result as normal/abnormal. RBC (test code = 36698-6) 4.56 M/UL See_Comment [Automated messa ge] The system which generated this result transmitted reference range: 3.80-5.40 M/UL. The reference range was not used to interpret this result as normal/abnormal. RDW (test code = 61485-3) 15.8 % See_Comment H [Automated [employer]] The system which generated this result transmitted reference range: 11.5-15.0 %. The reference range was not used to interpret this result as normal/abnormal. WBC (test code = 61104-8) 9.6 K/UL See_Comment [Automated [employer]] The system which generated this result transmitted reference range: 3.5-11.0 K/UL. The reference range was not used to interpret this result as normal/abnormal. COMP. METABOLIC PANEL (48747)2022-02-04 06:22:36* Test Item Value Reference Range Interpretation Comme nts NA (test code = 6479297263) 135 mmol/L 135-145 K (test code = 4580972242) 3.9 mmol/L 3.5-5 CL (test code = 0743499058) 104 mmol/L 98-108 CO2 TOTAL (test code = 1563002050) 22 mmol/L 23-31 L AGAP (test code = 2586906490) 2-16 BUN (test code = 3393359967) 11 mg/dL 7-23 GLUCOSE (test code = 2125753919) 125 mg/dL 70-110 H CREATININE (test code = 6397954202) 0.68 mg/dL 0.5-1.04 TOTAL BILI (test code = 1196352917) 0.1 mg/dL 0.1-1.1 CALCIUM (test code = 1866559693) 8.5 mg/dL 8.6-10.6 L T PROTEIN (test code = 4892200451) 6.4 g/dL 6.3-8.2 ALBUMIN (test code = 9877526259) 4.2 g/dL 3.5-5 ALK PHOS (test code = 9014315658) 62 U/L 34-122 ALTv (test code = 1742-6) 31 U/L 5-35 AST(SGOT) (test code = 0521272044) 41 U/L 13-40 H eGFR (test code = 7138211028) mL/min/1.73m2 JANINE (test code = JANINE) Association of Glomerular Filtration Rate (GFR) and Staging of Kidney Disease* + --+ --+ ------+| GFR (mL/min/1.73 m2) ?| With Kidney Damage ?| ?Without Kidney Damage+ --------+ --------+ +| ?>90 ?| ?Stage one ?| ? Normal ?+ ---+ ---+ -------+| ?60-89 ?| ?Stage two ?| ? Decreased GFR ? + --+ --+ ------+| ?30-59 ?| ?Stage three ?| ? Stage three ? + --+ --+ ------+| ?15-29 ?| ?Stage four ? | ? Stage four ?+ ---+ ---+ -------+| ?<15 (or dialysis) ? ?| ?Stage five ? | ? Stage five ?+ ---+ ---+ -------+ *Each stage assumes the associated GFR level has been in effect for at least three months. ?Stages 1 to 5, with or without kidney disease, indicate chronic kidney disease. Notes: Determination of stages one and two (with eGFR >59mL/min/1.73 m2) requires estimation of kidney damage for at least three months as defined by structural or functional abnormalities of the kidney, manifested by either:Pathological abnormalities or Markers of kidney damage (including abnormalities in the composition of the blood or urine or abnormalities in imaging tests). Lab Interpretation (test code = 18591-2) Abnormal [facility] WITH [id number] 06:17:40* Test Item Value Reference Range Interpretation Comme nts WBC (test code = 6690-2) See_Comment [Automated [employer]] The system which generated this result transmitted reference range: 4.30 - 11.10 10*3/?L. The reference range was not used to interpret this result as normal/abnormal. RBC (test code = 789-8) See_Comment [[employer]ated [employer]] The system which generated this result transmitted reference range: 3.93 - 5.25 10*6/?L. The reference range was not used to interpret this result as normal/abnormal. HGB (test code = 718-7) 9.9 g/dL 11.6-15 L HCT (test code = 4544-3) 32.8 % 35.7-45.2 L MCV (test code = 787-2) 74.5 fL 80.6-95.5 L MCH (test code = 785-6) 22.5 pg 25.9-32.8 L MCHC (test code = 786-4) 30.2 g/dL 31.6-35.1 L RDW-SD (test code = 39353-4) 45.5 fL 39-49.9 RDW-CV (test code = 788-0) 16.9 % 12-15.5 H PLT (test code = 777-3) See_Comment [Automated messa ge] The system which generated this result transmitted reference range: 166 - 358 10*3/?L. The reference range was not used to interpret this result as normal/abnormal. MPV (test code = 74915-1) 11.1 fL 9.5-12.9 NRBC/100 WBC (test code = 1058990409) See_Comment [Automated [employer]] The system which generated this result transmitted reference range: 0.0 - 10.0 /100 WBCs. The reference range was not used to interpret this result as normal/abnormal. NRBC x10^3 (test code = 1339277318) See_Comment [Automated messa ge] The system which generated this result transmitted reference range: 10*3/?L. The reference range was not used to interpret this result as normal/abnormal. GRAN MAT (NEUT) % (test code = 770-8) 53.0 % IMM GRAN % (test code = 9896598191) 0.20 % LYMPH % (test code = 736-9) 31.0 % MONO % (test code = 5905-5) 13.2 % EOS % (test code = 713-8) 2.2 % BASO % (test code = 706-2) 0.4 % GRAN MAT x10^3(ANC) (test code = 9855128753) 2.45 10*3/uL 1.88-7.09 IMM GRAN x10^3 (test code = 7470375896) 0-0.06 LYMPH x10^3 (test code = 731-0) 1.43 10*3/uL 1.32-3.29 MONO x10^3 (test code = 742-7) 0.61 10*3/uL 0.33-0.92 EOS x10^3 (test code = 711-2) 0.10 10*3/uL 0.03-0.39 BASO x10^3 (test code = 704-7) 0.01-0.07 Lab Interpretation (test code = 51918-2) Abnormal [facility] [id number] 05:59:00* Test Item Value Reference Range Interpretation Comme nts POCT PREG (test code = 1605) negative On board controls acceptable with C Line (test code = 3574) present POCT PREG LOT # (test code = 3575) [id number] POCT PREG TEST DATE ( test code = 3576) 04/24/2023 Lab Interpretation (test cod e = 34682-2) Normal [facility] URINALYSIS W/O SPECIFIC [id number] 13:55:00* Test Item Value Reference Range Interpretation Comme nts POCT PH U (test code = 3254) 6 mg/dl 5-8 POCT U LEUK EST (test code = 3263) Negative Negative - Negative POCT U NIT (test code = 3262) negative Negative - Negati ve POCT U PROT (test code = 3259) negative Negative - Negat oscar POCT U GLU (test code = 3256) normal Negative - Negati ve POCT U KETONE (test code = 3258) negative Negative - Neg ative POCT U BLD (test code = 3257) negative Negative - Negati ve [facility], [facility] Flu by Anabel Notes Date/Time Note Provider Source 2023-10-09 15:56:53 Pt discharged with diagnosis of dizziness, anemia, acute sinusitis, and nonintractable headache. Printed and verbal instructions reviewed with and given to pt. Prescriptions given x 5. Pt verbalized understanding of teaching, medications, and recommended follow-up. Denies questions or concerns at this time. Pt ambulatory at discharge. Appears in no apparent distress. No ataxia noted. Accompanied by . Geovanna Huang RN [facility] 2023-10-09 11:53:00 Patient states: "Since October 01 I've been having dizziness, headache, slurring words, and cough. I feel like the environment is spinning. I've been exposed to carbon monoxide at work. I've been trying to get a regular doctor but I haven't." Rossi Mims RN [facility]
[2024-03-11] MEDS ORDERED: LORAZEPAM 1 MG TABLET ONE (11:49)
[2024-03-11 12:49] LABS: Absolute Eosinophils 0.2 K/uL (0-0.5); Absolute Lymphocytes (CBC) 0.8 K/uL (0.7-4.9); Absolute Monocytes 0.5 K/uL (0.1-1.3); Absolute Neutrophil 6.8 K/uL (1.8-8.0); Basophils % 0.6 % (0-1.3); Hematocrit 30.6 % (36.0-45.0); Hemoglobin 9.5 g/dL (12.0-15.0); Lymphocytes % 9.8 % (15.3-44.8); MCH 21.2 pg (27.0-35.0); MCV 68.4 fL (80-100); MPV 8.5 fL (7.6-11.3); Monocytes % 6.1 % (3.3-12.3); Neutrophils % 81.5 % (41.7-73.7); Platelets 256 thou/uL (152-406); RBC Red Blood Cell Count 4.47 M/uL (3.86-4.86)
--- NOTE | 2024-03-11 12:52 | RAD REPORT ---
EXAMINATION: ONE VIEW CHEST XR CLINICAL INDICATION: paresthesia TECHNIQUE: Frontal chest projection is submitted. Examination is limited by patient positioning and t echnique. COMPARISON: No prior exam. FINDINGS: The lungs are well inflated and clear. The heart is normal in size. Hardware plate right clavicle. S ignificant kyphoscoliosis of the thoracic spine. IMPRESSION: No acute intrathoracic abnormalities.
[2024-03-11 13:16] LABS: Specific Gravity 1.012 (1.005-1.030)
[2024-03-11 13:18] LABS: Anisocytosis 1+; Blood Morphology Comment NOTED (NOT SEEN); Microcytosis 1+; Platelet Estimate ADEQ; White Blood Cell Scan OK (OK)
[2024-03-11 13:19] LABS: Hypochromasia 1+
[2024-03-11 13:30] LABS: ALT/SGPT 18 U/L (13-56); AST/SGOT 11 U/L (15-37); Albumin 3.8 g/dL (3.4-5.0); Alkaline Phosphatase 75 U/L (45-117); Anion Gap 7.9 mEq/L (5.0-15.0); BUN Blood Urea Nitrogen 10 mg/dL (7-18); Bicarbonate 23 mEq/L (21-32); Bilirubin Direct < 0.2 mg/dL (0-0.2); Bilirubin Indirect, Calculated 0.2 mg/dL (0.2-0.8); Bilirubin Total 0.4 mg/dL (0.2-1.0); Glomerular Filtration Rate 107 ml/min (=/>90); Glucose Level 95 mg/dL (74-106); Potassium 3.9 mEq/L (3.5-5.1); Protein, Total 7.8 g/dL (6.4-8.2); Sodium Level 136 mEq/L (136-145); Troponin High Sensitivity 5.9 pg/mL (<58.9)
--- NOTE | 2024-03-11 13:59 | RAD REPORT ---
EXAM: CT brain without contrast HISTORY: paresthesia COMPARISON: None TECHNIQUE: Multiple contiguous axial images were obtained and a CT of the brain without contrast. Sag ittal and coronal reformats were performed. One or more of the following dose reduction techniques were used: Automated exposure control, adjust ment of the mA and/or kV according to patient size, and/or iterative reconstruction. FINDINGS: No evidence of hydrocephalus, intracranial hemorrhage, or extra-axial fluid collection. The brain is normal in morphology. No evidence of midline shift or areas of brain edema. The calvarium is intact. The visualized paranasal sinuses and mastoid air cells are essentially clear . IMPRESSION: No evidence of acute intracranial abnormality.
--- NOTE | 2024-03-11 14:04 | RAD REPORT ---
EXAMINATION: CTA HEAD CLINICAL INDICATION: paresthesia TECHNIQUE: Axial CT images were obtained through the head after intravenous contrast utilizing angiog raphic protocol with 3D post-processing (maximum intensity projection images, volume rendered images and/or shaded surface rendered images). One or more of the following dose reduction technique s were used: Automated exposure control, adjustment of the mA and/or kV according to patient size, and/or iterative reconstruction. Unless otherwise specified, incidental findings do not require dedic ated imaging follow-up. COMPARISON: No prior exam. FINDINGS: ICA: The petrous, cavernous, and supraclinoid segments of the bilateral internal carotid arteries are normal. The ophthalmic artery origins are visualized and normal. The posterior communicating arteries are patent. VITA: Anterior cerebral arteries are normal bilaterally. The anterior communicating artery is patent. MCA: Middle cerebral arteries are normal bilaterally. COPY WRITER: Posterior cerebral arteries are normal bilaterally. Vertebrobasilar: The vertebral arteries are patent. The basilar artery is normal in appearance. 3D images confirm these findings. IMPRESSION: No significant flow abnormality is identified.
--- NOTE | 2024-03-11 14:08 | RAD REPORT ---
EXAMINATION: CTA NECK CLINICAL INDICATION: paresthesia TECHNIQUE: Axial CT images were obtained from the aortic arch to the skull base after intravenous con trast utilizing angiographic protocol with 3D post-processing (maximum intensity projection images, volume rendered images and/or shaded surface rendered images). One or more of the following dose redu ction techniques were used: Automated exposure control, adjustment of the mA and/or kV according to patient size, and/or iterative reconstruction. Unless otherwise specified, incidental findings do not require dedicated imaging follow-up. COMPARISON: No prior exam. FINDINGS: AORTA: The imaged aortic arch is normal. CCA: The common carotid arteries are patent and normal in caliber. ICA/ECA: Bilateral internal and external carotid arteries are patent. There is no significant interna l carotid artery stenosis. VERTEBRAL: The cervical vertebral arteries are patent. The vertebral arteries are codominant. SOFT TISSUE: No significant neck soft tissue abnormalities. The visualized lung apices are clear. 3D images confirm these findings. IMPRESSION: No significant flow abnormality of the neck vessels is identified. NASCET criteria used. Mild 0-49% stenosis Moderate 50-69% stenosis Severe 70-99% stenosis
--- NOTE | 2024-03-11 16:55 | RAD REPORT ---
EXAMINATION: MRI BRAIN WITHOUT CONTRAST CLINICAL INDICATION: paresthesia, rule out cva TECHNIQUE: Multiplanar multisequence MR images of the brain were obtained without intravenous contras t. Unless otherwise specified, incidental findings do not require dedicated imaging follow-up. COMPARISON: Same day multiple TESTING DIRECTOR examinations were reviewed. FINDINGS: INTRACRANIAL: Diffusion-weighted images show no acute or early subacute infarction. No abnormal brain parenchymal signal. The ventricles are normal in size and morphology. No augmented susceptibility. There is no mass effect or midline shift. No abnormal extraaxial fluid collection. VASCULATURE: Normal signal voids in the larger intracranial arteries and dural venous sinuses. SINUSES: The paranasal sinuses and mastoid air cells are predominantly clear. BONE: The marrow signal pattern is within normal limits. IMPRESSION: No significant intracranial abnormalities.
--- NOTE | 2024-03-11 17:00 | ER ---
Nurse's Notes [facility] Name: Berenice Bowen Age: 43 yrs Sex: Female : 1980 Arrival Date: 03/11/2024 Time: 11:10 Bed 12 Private MD: Diagnosis: Paresthesia of skin Presentation: 03/11 11:39 Chief complaint: Patient states: Tingling to R side of body that started Friday, now L ph side of body is tingling as well, no weakness, ambulatory into triage. Coronavirus screen: Vaccine status: Patient reports receiving the 2nd dose of the covid vaccine. Ebola Screen: No symptoms or risks identified at this time. Initial Sepsis Screen: Does the patient meet any 2 criteria? No. Patient's initial sepsis screen is negative. Does the patient have a suspected source of infection? No. Patient's initial sepsis screen is negative. Risk Assessment: Do you want to hurt yourself or someone else? Patient reports no desire to harm self or others. Onset of symptoms was March 11, 2024. 11:39 Method Of Arrival: Ambulatory ph 11:39 Acuity: LILLIAN 3 ph Historical: - Allergies: 11:44 Valium; ph - PMHx: 11:44 Kidney stones; scoliosis; ph - Family history:: not pertinent. Vital Signs: 11:39 BP 123 / 97; Pulse 98; Resp 18; Temp 98.2; Pulse Ox 100% ; Weight 68.04 kg; Height 5 ph ft. 4 in. ; 11:39 Body Mass Index 25.75 (68.04 kg, 162.56 cm) ph ED Course: 11:16 Patient arrived in ED. mg5 11:33 Dimitry Mckenzie MD is Attending Physician. rt 11:44 Triage completed. ph 11:44 Jackie Powell, RN is Primary Nurse. ph 12:00 Radiology exam delayed due to lab results not completed at this time. (BUN/Creatinine) nj IV insertion attempt and/or patient not having appropriate IV at this time. 12:39 XRAY Chest (1 view) In Process Unspecified. EDMS 13:47 CT Neck Angio In Process Unspecified. EDMS 13:48 CT Head Brain wo Cont In Process Unspecified. EDMS 13:49 Head angio In Process Unspecified. EDMS 16:48 MRI - Brain Wo Cont In Process Unspecified. EDMS 17:00 Rangel Rod MD is Referral Physician. rt 17:35 No provider procedures requiring assistance completed. IV discontinued, intact, ss bleeding controlled, No redness/swelling at site. Pressure dressing applied. Administered Medications: 11:50 Drug: LORazepam PO 1 mg PO once Route: PO; ph 14:10 Follow up: Response: No adverse reaction ss Outcome: 17:00 Discharge ordered by MD. rt 17:35 Discharged to home ambulatory, ss 17:35 Condition: good 17:35 Discharge instructions given to patient, family, Instructed on discharge instructions, follow up and referral plans. Demonstrated understanding of instructions, follow-up care, 17:35 Patient left the ED. ss Signatures: Dispatcher [employer] EDNC Damari Sanchez RN RN ss Jackie Powell RN RN sarah Sheldon, Dimitry eFrrari MD MD rt Oumou Gaffney mg5
--- NOTE | 2024-03-11 17:00 | EDPHYS ---
Physician Documentation [facility] Name: Berenice Bowen Age: 43 yrs Sex: Female : 1980 Arrival Date: 03/11/2024 Time: 11:10 Bed 12 Private MD: ED Physician Dimitry Mckenzie HPI: 03/11 12:44 This 43 yrs old Female presents to ER via Ambulatory with complaints of Tingling On rt Both Sides. 12:44 Patient presents to the ED with tingling involving the entire of the of the body. rt Patient states that she developed a tingling on the right side of the body starting on Friday. States that since this morning, progressed to have tingling on the left side of the body as well. Denies weakness. Denies other acute complaints, symptoms are moderate in severity, no other aggravating or alleviating factors.. Historical: - Allergies: 11:44 Valium; ph - PMHx: 11:44 Kidney stones; scoliosis; ph - Family history:: not pertinent. ROS: 12:44 Constitutional: Negative for fever, chills, and weight loss, Cardiovascular: Negative rt for chest pain, palpitations, and edema, Respiratory: Negative for shortness of breath, cough, wheezing, and pleuritic chest pain, Abdomen/GI: Negative for abdominal pain, nausea, vomiting, diarrhea, and constipation, MS/Extremity: Negative for injury and deformity, Skin: Negative for injury, rash, and discoloration, 12:44 Neuro: Positive for numbness, Negative for weakness, Exam: 12:44 Constitutional: This is a well developed, well nourished patient who is awake, alert, rt and in no acute distress. Chest/axilla: Normal chest wall appearance and motion. Nontender with no deformity. No lesions are appreciated. Cardiovascular: Regular rate and rhythm with a normal S1 and S2. No gallops, murmurs, or rubs. Normal PMI, no JVD. No pulse deficits. Respiratory: Lungs have equal breath sounds bilaterally, clear to auscultation and percussion. No rales, rhonchi or wheezes noted. No increased work of breathing, no retractions or nasal flaring. Abdomen/GI: Soft, non-tender, with normal bowel sounds. No distension or tympany. No guarding or rebound. No evidence of tenderness throughout. Skin: Warm, dry with normal turgor. Normal color with no rashes, no lesions, and no evidence of cellulitis. MS/ Extremity: Pulses equal, no cyanosis. Neurovascular intact. Full, normal range of motion. 12:44 Neuro: Reported numbness on both sides of the face, arms, legs, cranial nerves otherwise intact, strength intact in upper and lower extremities, speech normal., 13:42 ECG was reviewed by the Attending Physician. rt Vital Signs: 11:39 BP 123 / 97; Pulse 98; Resp 18; Temp 98.2; Pulse Ox 100% ; Weight 68.04 kg; Height 5 ph ft. 4 in. ; 11:39 Body Mass Index 25.75 (68.04 kg, 162.56 cm) ph MDM: 11:38 Medical Screening Exam initiated rt 11:43 Medical Screening Exam initiated rt 18:01 Differential Diagnosis CVA, paresthesia, electrolyte disturbance. Data reviewed: vital rt signs, nurses notes, lab test result(s), EKG, radiologic studies. Consideration of Admission/Observation Escalation of care including admission/observation considered. Negative MRI, essentially normal workup, CVA, MS is ruled out, patient appropriate for outpatient evaluation. I considered the following discharge prescriptions or medication management in the emergency department Medications were administered in the Emergency Department. See MAR. Independent interpretation of the following test(s) in the Emergency Department CT Scan: My interpretation is No intracranial hemorrhage seen on my interpretation of CT scan images. Counseling: I had a detailed discussion with the patient and/or guardian regarding the historical points, exam findings, and any diagnostic results supporting the discharge/admit diagnosis, lab results, radiology results, the need for outpatient follow up, to return to the emergency department if symptoms worsen or persist or if there are any questions or concerns that arise at home. Response to treatment: the patient's symptoms have mildly improved after treatment. 03/11 11:44 Order name: Basic Metabolic Panel; Complete Time: 13:35 rt 03/11 11:44 Order name: CBC with Diff; Complete Time: 13:35 rt 03/11 11:44 Order name: LFT's; Complete Time: 13:35 rt 03/11 11:44 Order name: Troponin HS; Complete Time: 13:35 rt 03/11 11:44 Order name: TSH; Complete Time: 13:35 rt 03/11 12:47 Order name: Test, Urine; Complete Time: 13:35 ss 03/11 13:19 Order name: CBC Smear Scan; Complete Time: 13:35 EDMS 03/11 11:44 Order name: XRAY Chest (1 view); Complete Time: 13:35 rt 03/11 11:44 Order name: CT Neck Angio; Complete Time: 14:15 rt 03/11 11:44 Order name: CT Head Brain wo Cont; Complete Time: 14:01 rt 03/11 12:34 Order name: Head angio; Complete Time: 14:15 EDMS 03/11 14:27 Order name: MRI - Brain Wo Cont; Complete Time: 16:56 rt 03/11 11:44 Order name: EKG; Complete Time: 11:44 rt 03/11 11:44 Order name: Cardiac monitoring; Complete Time: 14:10 rt 03/11 11:44 Order name: EKG - Nurse/Tech; Complete Time: 14:10 rt 03/11 11:44 Order name: IV Saline Lock; Complete Time: 12:56 rt 03/11 11:44 Order name: Labs collected and sent; Complete Time: 12:56 rt 03/11 11:44 Order name: O2 Per Protocol; Complete Time: 12:56 rt 03/11 11:44 Order name: O2 Sat Monitoring; Complete Time: 12:56 rt EC:42 Rate is 82 beats/min. Rhythm is regular, Normal Sinus Rhythm with No ectopy. QRS [place] rt is Normal. MA interval is normal. QRS interval is normal. QT interval is normal. No Q waves. T waves are Normal. No ST changes noted. Interpreted by me. Administered Medications: 11:50 Drug: LORazepam PO 1 mg PO once Route: PO; ph 14:10 Follow up: Response: No adverse reaction ss Disposition Summary: 03/11/24 17:00 Discharge Ordered Notes: Location: Home rt Problem: new rt Symptoms: have improved rt Condition: Stable rt Diagnosis - Paresthesia of skin rt Followup: rt - With: Rangel Rod MD - When: 2 - 3 days - Reason: Discharge Instructions: - Discharge Summary Sheet rt - Paresthesia rt Forms: - Medication Reconciliation Form rt - Antibiotic Education rt - Prescription Opioid Use rt - Patient Portal Instructions rt - Leadership Thank You Letter rt Signatures: Dispatcher [employer] EDJackie Love RN RN ph Dimitry Mckenzie MD MD rt Damari Sanchez RN ss Corrections: (The following items were deleted from the chart) 11: 11:44 Neck Angio+CT.RAD.BRZ ordered. EDMS EDMS 11:45 11:45 Head Brain Wo Cont+CT.RAD.BRZ ordered. EDMS EDMS 13:14 11:44 TEST, SERUM+SC.LAB.BRZ ordered. EDMS EDMS
[2024-03-11 17:59] VITALS: BP 123/97; TEMP 98.2; O2SAT 100
== END 2024-03-11 17:35 | disposition home or self-care (01) ==
LOC: ER 11:10
DX: R20.2 Paresthesia of skin (principal)
CPT/HCPCS: 93005; 85025; 80048; 36415; 81025; 80076; 84443; 84484; 70450; 70496; 70498; 71045; 70551; 99283; Q9967